=== PATIENT | male | born 1960 | race Caucasian/White ===

== ENCOUNTER 2022-04-13 10:06 | Outpatient (CLI) | payer OTHER ==
[~2022-04-13 10:06] MED LIST: DIAZ2TAB PO; FEXO180T94 PO; GABA-532 PO; HYDR-4353 PO
== END 2022-04-13 23:59 | disposition home or self-care (01) ==
LOC: RAD 10:06
PROVIDERS: ATTEND Surgery
DX: K22.4 Dyskinesia of esophagus (principal); M40.294 Other kyphosis, thoracic region
CPT/HCPCS: 74220

== ENCOUNTER 2024-03-19 16:09 | Emergency (ER) | payer OTHER ==
[~2024-03-19] VITALS: Ht 175.3 cm; Wt 86.4 kg
[~2024-03-19 16:09] MED LIST changes: +CYAN50009 PO; -DIAZ2TAB PO; +DOCU-148 PO; -FEXO180T94 PO; +FLO0.4C PO; -GABA-532 PO; -HYDR-4353 PO; +LACT10SO88 PO; +LEVO100T PO; +METO-384 PO
[2024-03-19 18:25] VITALS: TEMP 98.7
[2024-03-19 20:15] VITALS: BP 146/90; PULSE 65; O2SAT 96
[2024-03-19 20:39] VITALS: RESP 18
[2024-03-19] MEDS: ketorolac trometh 15mg/ml vial 15 MG/ML ML IM ONE (20:39)
== END 2024-03-19 20:53 | disposition home or self-care (01) ==
LOC: ER 16:09
DX: S62.305A Unspecified fracture of fourth metacarpal bone, left hand, initial encounter for closed fracture (principal); S09.90XA Unspecified injury of head, initial encounter; M54.2 Cervicalgia; F12.90 Cannabis use, unspecified, uncomplicated; Z91.040 Latex allergy status; Z88.8 Allergy status to other drugs, medicaments and biological substances; Z79.899 Other long term (current) drug therapy; X58.XXXA Exposure to other specified factors, initial encounter; Y93.89 Activity, other specified; Y92.89 Other specified places as the place of occurrence of the external cause; Y99.8 Other external cause status
CPT/HCPCS: 29125; 70450; 71100; 72125; 73090; 73110; 73130; 96372; 99285; J1885

== ENCOUNTER 2024-11-26 08:34 | Outpatient (CLI) | payer OTHER ==
[~2024-11-26 08:34] MED LIST changes: -FLO0.4C PO; +LACT-383 PO; -LACT10SO88 PO; +TAMS-55 PO
--- NOTE | 2024-11-26 13:50 | RADIOLOGY REPORT ---
CLINICAL HISTORY: Left hand carpal tunnel syndrome. TECHNIQUE: Multi sequence multi planar MRI images of the left hand were obtained without IV contrast . COMPARISON: Radiographs dated 03/19/2024. FINDINGS: No acute fracture or focal marrow contusion. Arthritic changes involving the interphalange al joints, greatest involving the 2nd digit DIP joint, where there are severe osteoarthritic changes. No significant joint effusion. The carpal tunnel is incompletely included within the field of view o f the MRI hand exam, limiting evaluation. There is some bulging of the flexor retinaculum, which may be seen with carpal tunnel syndrome in the appropriate clinical setting. There is mild tenosynovitis of the 3rd digit flexor tendons at the level of the 3rd metacarpal head and neck. No flexor or exten sor tendon tear visualized. No ligamentous abnormality identified. IMPRESSION: 1. Partially visualized bulging of the flexorretinaculum, may be seen with carpal tunnel syndrome in the appropriate clinical setting. Carpal tunnel incompletely visualized within the field of view of t he MR hand exam. MR wrist could be considered to better characterize. 2. Mild tenosynovitis of the 3rd digit flexor tendons near the level of the 3rd metacarpal head and n lenny. 3. Arthritic changes as described above, greatest involving the 2nd digit d IP joint, where there are severe arthritic changes.
== END 2024-11-26 23:59 | disposition home or self-care (01) ==
LOC: MRI02 08:34
PROVIDERS: ATTEND Physician Assistant
DX: G56.02 Carpal tunnel syndrome, left upper limb (principal); M25.342 Other instability, left hand; M25.432 Effusion, left wrist
CPT/HCPCS: 73218

== ENCOUNTER 2025-03-01 06:57 | Emergency (ER) | payer OTHER ==
[~2025-03-01] VITALS: Ht 175.3 cm; Wt 96.4 kg
[2025-03-01] MEDS ORDERED: CETI10CA PO (07:24)
[2025-03-01] MEDS ORDERED: PRED20TA PO (07:24)
--- NOTE | 2025-03-01 07:24 | Physician Documentation ---
History of Present Illness ~ Chief Complaint: Rash Stated Complaint: RASH Time Seen by MD: 07:11 Primary Medical Doctor: ELIZABETH Source: patient Mode of Arrival: POV Exam Limitations: no limitations HPI Patient who just finished 29 days straight of radiation for a pituitary tumor. That radiation ended about 5 days ago. For the past couple of weeks he has had an itchy rash that started on his shins and has worked his way up. He has been trying Decadron a half tab every other day but he does not know the mg. He also takes an antihistamine that he has always taken. He has been trying topical lotions including Benadryl, cortisone cream, calamine and he really is not getting any relief from the itching. Medication Reconciliation Allergies: Coded Allergies: Latex, Natural Rubber (Verified Allergy, Unknown, RASH, 03/01/25) Kzjwoav-BLM-RmF Reductase Inhibitor (Verified Allergy, Unknown, CAN'T BREATHE, SWELL UP, 03/01/25) Sulfa (Sulfonamide Antibiotics) (Verified Allergy, Unknown, SWELL UP; CAN'T BREATHE, 03/01/25) Uncoded Allergies: ALLERGIC TO MANY FOODS (Allergy, Intermediate, 10/03/14) Scheduled Cetirizine Hcl (Zyrtec), 1 CAP PO DAILY Cyanocobalamin (Vitamin B-12) (Vitamin B12), 1 TAB PO DAILY, (Reported) Docusate Sodium (Colace), 1 CAP PO DAILY, (Reported) Lactulose (Lactulose), 15 ML PO DAILY Levothyroxine Sodium (Synthroid), 1 TAB PO DAILY, (Reported) Metoprolol Succinate (Metoprolol Succinate), 1 TAB PO DAILY, (Reported) Prednisone* (Prednisone*), 3 TAB PO DAILY Tamsulosin Hcl* (Flomax*), 1 CAP PO DAILY, (Reported) Past Medical History Past Medical History: BPH, Chronic Back Pain Past Surgical History: orthopedic surgeries Alcohol Use: None Drug Use: marijuana Review of Systems All Other Systems at this time: Reviewed and Negative Physical Exam Vital Signs: Temperature: 97.8, Source: Temporal, Heart Rate: 83, Respiratory Rate: 16, BP: 141/99, Pulse Oximetry: 97, Weight: 96.400 General Appearance: alert, WD/WN Eyes, Ears: normal ENT inspection Neck: full range of motion Respiratory: normal breath sounds, no respiratory distress Chest: no accessory muscle use Cardiovascular: regular rate, rhythm Extremities: normal range of motion Skin: warm/dry Skin 1 mm areas of raised erythema scattered across both anterior shins and slightly up on the chest Neurologic: oriented x4 Psychiatric: normal mood/affect Progress Results/Orders Results/Orders Orders - DIOGENES LAROSE MD Prednisone Tablet (Prednisone Tablet) (03/01/25 07:25) Cetirizine Tablet (Zyrtec Tablet) (03/01/25 07:25) Vital Signs 03/01/25 07:02 Temp 97.8 Pulse 83 Resp 16 B/P (MAP) 141/99 Pulse Ox 97 Medical Decision Making Additional Comment Patient in with a rash that is most consistent with hives. Differential would include dermatitis and psoriasis. Does not appear to be any sort of bug bite. Placing him on prednisone 60 mg a day for 5 days and switching his antihistamine to Zyrtec. Discharging home in good condition. He is to follow up with his PCP if not improving or return if new or worsening symptoms. Patient does not have any continued radiation planned. Departure Disposition: 01 HOME / SELF CARE / HOMELESS Impression: Primary Impression: Urticaria Condition: Stable Discharge Instructions: Hives Additional Instructions: Stop your steroids and antihistamine. Start your new prescriptions tomorrow. You can go back to your old antihistamine if you prefer once you are finished with the Zyrtec. Follow up with your doctor if not improving or return if new or worsening symptoms. Referrals: NO PRIMARY CARE PROVIDER (PCP) Prescriptions Cetirizine Hcl (Zyrtec) 10 Mg Capsule 1 CAP PO DAILY for allergy symptoms for 10 Days, #10 CAP 0 Refills Prov: DIOGENES LAROSE MD 03/01/25 Prednisone* (Prednisone*) 20 Mg Tablet 3 TAB PO DAILY for 4 Days, #12 TAB Prov: DIOGENES LAROSE MD 03/01/25 Education Educated: Patient Educated regarding: diagnosis, treatment, need for follow up Signature Scribe Signature: No scribe used Attestation: No scribe used DIOGENES LAROSE MD Mar 01, 2025 07:24
[2025-03-01 07:40] VITALS: BP 141/99; PULSE 83; RESP 16; TEMP 97.8; O2SAT 97
== END 2025-03-01 07:40 | disposition home or self-care (01) ==
LOC: ER 06:57
DX: L50.9 Urticaria, unspecified (principal); F12.90 Cannabis use, unspecified, uncomplicated; Z88.2 Allergy status to sulfonamides; Z88.8 Allergy status to other drugs, medicaments and biological substances; Z91.040 Latex allergy status
CPT/HCPCS: 99283; J7512

== ENCOUNTER 2025-06-25 13:26 | Emergency (ER) | payer OTHER, MEDICARE ==
[~2025-06-25] VITALS: Ht 175.3 cm; Wt 87.2 kg
[~2025-06-25 13:26] MED LIST changes: +CETI10CA PO
[2025-06-25 13:34] VITALS: BP 137/85; TEMP 97.9; O2SAT 99
--- NOTE | 2025-06-25 15:09 | RADIOLOGY REPORT ---
EXAM: [facility] INDICATION: fall COMPARISON: CT CT CERVICAL SPINE on DOS: 03/19/24 TECHNIQUE: 4 views of the cervical spine were obtained. FINDINGS: Normal alignment of the cervical spine visualized C7. No abnormal widening of the atlantoaxial interval. There is ACDF at C5-C7 with interbody spacers at C5- C6 and C6-C7 with interbody fusion. No acute appearing fracture. There is multilevel cervical spondylosis with multilevel osteophyte formation and moderate disc space narrowing at C3-C4 and C4-C5. No abnormal widening of the prevertebral soft tissues. Multiple dental amalgam are visualized. Multilevel facet hypertrophy. Overlying soft tissues intact. The visualized lung apices are clear. Partially imaged healed mid left clavicle fracture deformity. IMPRESSION: 1. No acute fracture or traumatic malalignment. 2. Prior ACDF at C5-C7 with interbody fusion C5-C6 and C6-C7. 3. Multilevel cervical spondylosis with moderate disc space narrowing at C3-C4 and C4-C5.
--- NOTE | 2025-06-25 15:11 | RADIOLOGY REPORT ---
CLINICAL INDICATION: fall LEFT HIP TECHNIQUE: DI HIP UNILATERAL 2-3 VIEWS COMPARISON: None FINDINGS/IMPRESSION: : Normal mineralization and alignment. No acute fracture. Normal alignment of the hips and sacroiliac joints. Phleboliths project over the pelvis. Posterior spinal fixation hardware bilateral rods and transpedicular screws traversing the lower lumbar spine extending to the upper sacral spine. Bone graft material appears about the bilateral posterior elements about the fixated posterior vertebral bodies. Visualized bowel gas is nonobstructed.
--- NOTE | 2025-06-25 15:20 | Physician Documentation ---
History of Present Illness ~ Chief Complaint: Neck pain Stated Complaint: MULTIPLE MED COMPLAINTS Time Seen by MD: 14:44 Primary Medical Doctor: ELIZABETH [facility] This 65-year-old male patient presents to the ED with a multiple medical complaints after having a fall two days ago he complains of neck pain and left hip pain. Denies any head strike. States he has a long history of medical p roblems including one month of having decreased appetite. He is that in January he finished radiation therapy for pituitary tumor. Says that he has lost 26 lb over the last month. Patient also states that he is having mental health issues stating that he does not want to live anymore but does not have any plan to harm himself Medication Reconciliation Allergies: Coded Allergies: morphine (Verified Allergy, Mild, itching, 06/25/25) Latex, Natural Rubber (Verified Allergy, Unknown, RASH, 06/25/25) Rhzgjhl-EXJ-VxS Reductase Inhibitor (Verified Allergy, Unknown, CAN'T BREATHE, SWELL UP, 06/25/25) Sulfa (Sulfonamide Antibiotics) (Verified Allergy, Unknown, SWELL UP; CAN'T BREATHE, 06/25/25) Uncoded Allergies: ALLERGIC TO MANY FOODS (Allergy, Intermediate, 10/03/14) Scheduled Cetirizine Hcl (Zyrtec), 1 CAP PO DAILY Cyanocobalamin (Vitamin B-12) (Vitamin B12), 1 TAB PO DAILY, (Reported) Docusate Sodium (Colace), 1 CAP PO DAILY, (Reported) Lactulose (Lactulose), 15 ML PO DAILY Levothyroxine Sodium (Synthroid), 1 TAB PO DAILY, (Reported) Metoprolol Succinate (Metoprolol Succinate), 1 TAB PO DAILY, (Reported) Tamsulosin Hcl* (Flomax*), 1 CAP PO DAILY, (Reported) Past Medical History Past Medical History: BPH, Chronic Back Pain Past Surgical History: orthopedic surgeries Alcohol Use: None Drug Use: marijuana Review of Systems All Other Systems at this time: Reviewed and Negative ROS As stated above in the HPI, otherwise all systems are reviewed and negative. Physical Exam Vital Signs: Temperature: 97.9, Source: Temporal, Heart Rate: 75, Respiratory Rate: 16, BP: 137/85, Pulse Oximetry: 99, Weight: 87.200 Oxygen Flow Rate: 0 Progress Results/Orders Results/Orders Orders - IRENE BLACKWOOD [employer] [facility] (06/25/25 14:32) Hip Unilateral 2-3 Views (06/25/25 14:32) Completed Orders - IRENE BLACKWOOD [employer] UP OPER[employer] [facility] (06/25/25 14:32) Hip Unilateral 2-3 Views (06/25/25 14:32) Normal Saline 1000ml (0.9% Sodium Chlori (06/25/25 15:10) Cbc/Diff (06/25/25 15:06) BMP (06/25/25 15:06) Morphine 4mg/Ml Inj. (Morphine Inj.) (06/25/25 15:20) Ondansetron Inj. (Zofran 4mg/2ml Vial) (06/25/25 15:20) Man Diff (06/25/25 15:21) Medications Received in ER Medications (Trade) Dose Ordered Sig/Caro Route PRN Reason Start Time Stop Time Status Last Admin Dose Admin (0.9% sodium chloride (NS) 1000ml IV soln) 1,000 ml ONCE ONCE IVB 06/25/25 15:10 06/25/25 15:11 DC 06/25/25 15:56 1,000 ML (Zofran 4mg/2ml vial) 4 mg ONCE ONCE IV 06/25/25 15:20 06/25/25 15:21 DC 06/25/25 15:57 4 MG Vital Signs 06/25/25 06/25/25 06/25/25 13:34 15:57 16:50 Temp 97.9 Pulse 75 64 Resp 16 12 14 B/P (MAP) 137/85 Pulse Ox 99 O2 Flow Rate 0 Laboratory Tests Test 06/25/25 15:21 White Blood Count 2.6 L Red Blood Count 5.17 Hemoglobin 17.1 Hematocrit 49.9 Mean Corpuscular Volume 96.6 Mean Corpuscular Hemoglobin 33.1 H Mean Corpuscular Hemoglobin Concent 34.3 Red Cell Distribution Width 13.3 Platelet Count 136 L Mean Platelet Volume 6.9 L Neutrophils (%) (Auto) 41.6 L Lymphocytes (%) (Auto) 44.9 Monocytes (%) (Auto) 11.7 Eosinophils (%) (Auto) 1.0 Basophils (%) (Auto) 0.8 Neutrophils # (Auto) 1.1 L Lymphocytes # (Auto) 1.2 Monocytes # (Auto) 0.3 Eosinophils # (Auto) 0.0 Basophils # (Auto) 0.0 CBC Comment Differential Total Cells Counted 100 Neutrophils % (Manual) 41.0 L Band Neutrophils % 11.0 H Lymphocytes % (Manual) 35.0 Monocytes % (Manual) 12.0 Eosinophils % (Manual) 1.0 Platelet Estimate Normal Red Blood Cell Morphology Perf Basophilic Stippling Anisocytosis 1+ Macrocytosis 1+ Sodium Level 141 Potassium Level 3.8 Chloride Level 108 H Carbon Dioxide Level 19.0 L Anion Gap 14 Blood Urea Nitrogen 16 Creatinine 1.16 H Estimated GFR/1.73 m2 64 BUN/Creatinine Ratio 13.8 Glucose Level 87 Calcium Level 9.1 Albumin 4.1 Chemistry Comments Medical Decision Making Additional information obtaine: old records Findings Patient's labs are not remarkable it any since in emergency. Patient requested IV fluids I obliged. Him some Zofran to help with improved oral intake. After receiving treatment he reported overall improved symptoms. He has he can not take narcotic pain medications due to prior addictions. Gave him Zofran he is able to tolerate cookies at bedside and hold them down via p.o. challenge. After treatment he reported he felt better and did not feel so hopeless and maintained that he was not going to harm self Addition he said he would just go ahead and take Tylenol at home for his neck and hip pain. X-rays did not indicate any signs of fracture per my interpretation Differential Dx:Considerations: Include: Cervical muscle spasm, Discitis, DJD, Meningitis, Thyroiditis, Torticollis, Vertebral artery dissect., Other Departure Disposition: HOME / SELF CARE / HOMELESS Impression: Primary Impression: Neck pain Additional Impression: Strain of neck muscle Condition: Stable Discharge Instructions: Cervical Sprain Referrals: NO PRIMARY CARE PROVIDER (PCP) Signature Scribe Signature: y Attestation: Scribed for Irene Blackwood Transcription Coordinator by Irene Mims NP . 06/25/25 18:32 IRENE BLACKWOOD NP Jun 25, 2025 15:20
[2025-06-25 15:36] LABS: MEAN PLATELET VOLUME 6.9 FL (7.4-10.4); RED CELL DISTRIBUTION WIDTH 13.3 % (11.5-14.5)
[2025-06-25 15:47] LABS: CREATININE 1.16 MG/DL (0.60-1.10); TOTAL CARBON DIOXIDE 19.0 MMOL/L (24-32); eCRCL 65 ML/MIN; eGFR 64 ML/MIN
[2025-06-25] MEDS: normal saline 1000ML IV soln IVB ONE (15:56)
[2025-06-25 15:57] LABS: BANDS% (MANUAL) 11.0 % (0-10); EOSINOPHILS % (MANUAL) 1.0 % (0-6); LYMPHOCYTES % (MANUAL) 35.0 % (21-51); MONOCYTES % (MANUAL) 12.0 % (2-12); NEUTROPHILS % (MANUAL) 41.0 % (42-75)
[2025-06-25] MEDS: ondansetron/PF 4mg/2ml inj IV ONE (15:57)
[2025-06-25] MEDS: morphine 4 MG/ML inj SYRINge IV ONE (15:57)
[2025-06-25 15:59] LABS: PLATELET ESTIMATE NORMAL
[2025-06-25 16:50] VITALS: PULSE 64; RESP 14
== END 2025-06-25 16:50 | disposition home or self-care (01) ==
LOC: ER 13:27
DX: S16.1XXA Strain of muscle, fascia and tendon at neck level, initial encounter (principal); G89.29 Other chronic pain; F12.90 Cannabis use, unspecified, uncomplicated; Z88.5 Allergy status to narcotic agent; Z91.040 Latex allergy status; Z88.2 Allergy status to sulfonamides; Z88.8 Allergy status to other drugs, medicaments and biological substances; Z79.899 Other long term (current) drug therapy; Z98.890 Other specified postprocedural states; W18.39XA Other fall on same level, initial encounter; Y93.89 Activity, other specified; Y92.89 Other specified places as the place of occurrence of the external cause; Y99.8 Other external cause status
CPT/HCPCS: 36415; 72040; 73502; 80048; 85007; 85025; 96361; 96374; 99284; J2405; J7030